=== PATIENT | female | born 1995 | race Caucasian/White ===

== ENCOUNTER 2017-12-20 15:19 | Inpatient (IN) | payer MEDICAID ==
[~2017-12-20 15:19] MED LIST: EPHEDrine SULFATE 50 MG/5 ML SYG
[2017-12-20] MEDS ORDERED: OXYTOCIN 30 UNITS/LR 500 ML IV ×3 (16:00→20:00)
[2017-12-20] MEDS ORDERED: MISOPROSTOL 200 MCG TAB PR ×2 (16:00→20:00)
[2017-12-20] MEDS ORDERED: CEFAZOLIN 2 GM/50 ML (PMX) 50 ML IV ×2 (16:00→20:00)
[2017-12-20] MEDS ORDERED: CARBOPROST 250 MCG INJ IM ×2 (16:00→20:00)
[2017-12-20] MEDS ORDERED: METHYLERGONOVINE 0.2 MG INJ IM ×2 (16:00→20:00)
[2017-12-20 16:16] LABS: ADD MAN DIFF? NO
[2017-12-20] MEDS: LACTATED RINGER'S 1,000 ML IV ×2 (16:16→18:23)
[2017-12-20 16:19] LABS: BASOPHILS % 0.3 % (0.0-2.0); EOSINOPHILS # 0.1 10^3/ul (0.0-0.5); EOSINOPHILS % 1.1 % (0.0-7.0); HEMATOCRIT 37.2 % (37.0-47.0); HEMOGLOBIN 12.3 g/dl (12.0-16.0); LYMPHOCYTES # 2.2 10^3/ul (0.8-2.9); LYMPHOCYTES % 20.7 % (15.0-51.0); MEAN CORPUSCULAR HEMOGLOBIN 29.9 pg (29.0-33.0); MEAN CORPUSCULAR HGB CONC 33.1 g/dl (32.0-37.0); MEAN CORPUSCULAR VOLUME 90.5 fl (82.0-101.0); MEAN PLATELET VOLUME 11.8 fl (7.4-10.4); MONOCYTE # 0.6 10^3/ul (0.3-0.9); MONOCYTES % 5.6 % (0.0-11.0); NEUTROPHIL # 7.4 10^3/ul (1.6-7.5); NEUTROPHILS % 71.1 % (39.0-77.0); PLATELET COUNT 190 10^3/UL (140-415); RED BLOOD COUNT 4.11 10^6/ul (4.20-5.40); RED CELL DISTRIBUTION WIDTH 13.3 % (11.5-14.5)
[2017-12-20 16:19] LABS: WHITE BLOOD COUNT 10.4 10^3/ul (4.8-10.8)
[2017-12-20 16:35] LABS: INR 0.94; PROTIME 12.7 Sec (11.9-14.9)
[2017-12-20 16:36] LABS: PARTIAL THROMBOPLASTIN TIME 27.9 Sec (25.0-35.0)
[2017-12-20] MEDS: ONDANSETRON 4 MG INJ IV (18:50)
[2017-12-20] MEDS: CITRIC ACID/NA CITRATE 30 ML CUP PO (18:50)
[2017-12-20] MEDS ORDERED: PHENYLephrine (100 MCG/ML) 5ML SYG (19:06)
[2017-12-20] MEDS ORDERED: morphine SULFATE/PF (10 MG/10 ML) INJ (19:06)
[2017-12-20] MEDS ORDERED: OXYTOCIN 10 UNIT INJ (19:06)
[2017-12-20] MEDS ORDERED: BUPIVACAINE 0.75%/DEXT (SPINAL) 2 ML INJ (19:07)
[2017-12-20] MEDS ORDERED: METOCLOPRAMIDE 10 MG INJ (19:46)
[2017-12-20] MEDS ORDERED: KETOROLAC 30 MG INJ (19:46)
[2017-12-20] MEDS ORDERED: DEXAMETHASONE 4 MG/ML 1 ML INJ (19:46)
[2017-12-20] MEDS ORDERED: OXYCODONE/ACETAMINOPHEN (5/325) TAB PO ×2 (20:00)
[2017-12-20] MEDS ORDERED: ONDANSETRON 4 MG INJ IV ×2 (20:30)
[2017-12-20] MEDS ORDERED: MEPERIDINE 25 MG INJ IV (20:30)
[2017-12-20] MEDS ORDERED: NALOXONE (0.4 MG/ML) INJ IV (20:30)
[2017-12-20] MEDS ORDERED: morphine 2 MG INJ IV ×2 (20:30)
[2017-12-20] MEDS ORDERED: HYDROmorphONE 1 MG/5 ML IV SYRINGE IV ×3 (20:30)
[2017-12-20] MEDS ORDERED: HYDROCODONE/APAP (5/325) TAB PO (20:30)
[2017-12-20] MEDS ORDERED: NALBUPHINE HCL (10 MG/1 ML) INJ IV (20:30)
[2017-12-20] MEDS ORDERED: EPHEDrine SULFATE 50 MG/5 ML SYG IV (20:30)
[2017-12-20] MEDS ORDERED: FENTAnyl 50 MCG/ML VIAL IV ×3 (20:30)
[2017-12-20] MEDS ORDERED: DIPHENHYDRAMINE 50 MG INJ IV ×2 (20:30)
[2017-12-20] MEDS ORDERED: ALBUMIN HUMAN 5% 250 ML IV (20:30)
[2017-12-20] MEDS ORDERED: ACETAMINOPHEN 500 MG TAB PO (20:30)
[2017-12-20] MEDS ORDERED: METOCLOPRAMIDE 10 MG INJ IV (20:30)
[2017-12-20] MEDS ORDERED: HYDROmorphONE 0.5 MG/0.5 ML SYG IV ×2 (20:30)
[2017-12-20 20:49] LABS: RAPID PLASMA REAGIN NONREACTIVE (NR)
[2017-12-20] MEDS: SENNA/DOCUSATE NA (8.6MG/50MG) TAB PO (21:00)
[2017-12-20] MEDS: OXYTOCIN 30 UNITS/LR 500 ML IV (21:02)
[2017-12-21] MEDS: CEFAZOLIN 2 GM/50 ML (PMX) 50 ML IVPB ×3 (03:38→18:42)
[2017-12-21] MEDS: LACTATED RINGER'S 1,000 ML IV ×4 (05:46→18:07)
[2017-12-21] MEDS: SENNA/DOCUSATE NA (8.6MG/50MG) TAB PO ×2 (09:00→20:55)
[2017-12-21 09:12] LABS: ADD MAN DIFF? NO; BASOPHILS % 0.2 % (0.0-2.0); EOSINOPHILS % 0.1 % (0.0-7.0); HEMATOCRIT 32.6 % (37.0-47.0); HEMOGLOBIN 10.7 g/dl (12.0-16.0); LYMPHOCYTES # 1.9 10^3/ul (0.8-2.9); LYMPHOCYTES % 13.8 % (15.0-51.0); MEAN CORPUSCULAR HGB CONC 32.8 g/dl (32.0-37.0); MEAN CORPUSCULAR VOLUME 91.3 fl (82.0-101.0); MEAN PLATELET VOLUME 12.3 fl (7.4-10.4); MONOCYTES % 7.3 % (0.0-11.0); NEUTROPHIL # 10.7 10^3/ul (1.6-7.5); NEUTROPHILS % 78.1 % (39.0-77.0); PLATELET COUNT 186 10^3/UL (140-415); RED BLOOD COUNT 3.57 10^6/ul (4.20-5.40); RED CELL DISTRIBUTION WIDTH 13.2 % (11.5-14.5)
[2017-12-21 09:12] LABS: WHITE BLOOD COUNT 13.7 10^3/ul (4.8-10.8)
[2017-12-21] MEDS: FERROUS SULFATE (EC) 325 MG TAB PO (20:55)
[2017-12-21] MEDS: IBUPROFEN 600 MG TAB PO (23:56)
[2017-12-22] MEDS: IBUPROFEN 600 MG TAB PO ×4 (05:37→23:51)
[2017-12-22] MEDS: LACTATED RINGER'S 1,000 ML IV ×2 (08:00→16:00)
[2017-12-22] MEDS: SENNA/DOCUSATE NA (8.6MG/50MG) TAB PO ×2 (09:33→21:34)
[2017-12-22] MEDS: FERROUS SULFATE (EC) 325 MG TAB PO ×2 (09:33→21:34)
[2017-12-22] MEDS: BISACODYL 10 MG SUPP PR (21:34)
[2017-12-23] MEDS: IBUPROFEN 600 MG TAB PO ×3 (05:31→17:21)
[2017-12-23] MEDS: LACTATED RINGER'S 1,000 ML IV ×2 (08:00)
[2017-12-23] MEDS: SENNA/DOCUSATE NA (8.6MG/50MG) TAB PO (09:00)
[2017-12-23] MEDS: FERROUS SULFATE (EC) 325 MG TAB PO (11:53)
== END 2017-12-23 18:05 | disposition home or self-care (01) | DRG 766 ==
LOC: L-D 15:19 → PP1 22:36
PROVIDERS: Obstetrics & Gynecology
PROC: 10D00Z1 Extraction of Products of Conception, Low, Open Approach (ICD-10-PCS; principal; 2017-12-20 17:00)
DX: O34.219 Maternal care for unspecified type scar from previous cesarean delivery (principal); O75.82 Onset (spontaneous) of labor after 37 completed weeks of gestation but before 39 completed weeks gestation, with delivery by (planned) cesarean section; Z3A.39 39 weeks gestation of pregnancy; Z37.0 Single live birth
CPT/HCPCS: 85025; 85610; 85730; 86592; 86850; 86900; 86901; 99464